=== PATIENT | male | born 1990 | race Two or more races ===

== ENCOUNTER 2019-09-27 04:45 | Day surgery (SDC) | payer OTHER ==
[~2019-09-27] VITALS: Ht 170.2 cm; Wt 80.4 kg
--- NOTE | 2019-09-27 05:05 | NUR ---
pt up to rr with steady gait
[2019-09-27] MEDS ORDERED: SODIUM CHLORIDE FLUSH 10ML SYR IVF ONE (05:30)
--- NOTE | 2019-09-27 05:37 | NUR ---
iv site started, labs drawwn, monitors in place, siderails up x2, call light within reach
[2019-09-27 05:41] LABS: MICROSCOPIC AUTO
[2019-09-27 05:59] LABS: BASOPHILS % (AUTO) 0 % (0-1); EOSINOPHILS # (AUTO) 0.04 x10^3/uL (0-0.4); EOSINOPHILS % (AUTO) 0 % (1-7); LYMPHOCYTES # (AUTO) 1.08 x10^3/uL (1-3.4); LYMPHOCYTES % (AUTO) 6 % (22-44); MD NO; MEAN CORPUSCULAR HEMOGLOBIN 30.5 pg (27.5-34.5); MEAN CORPUSCULAR HGB CONC 33.6 g/dL (33.2-36.2); MEAN CORPUSCULAR VOLUME 90.6 fL (81-97); MEAN PLATELET VOLUME 6.9 fL (7.4-10.4); MONOCYTES # (AUTO) 0.62 x10^3/uL (0.2-0.8); MONOCYTES % (AUTO) 4 % (2-9); NEUTROPHILS # (AUTO) 15.55 x10^3/uL (1.8-6.8); NEUTROPHILS % (AUTO) 90 % (42-75); PLATELET COUNT 327 x10^3/uL (130-400); RED BLOOD COUNT 4.94 x10^6/uL (4.38-5.82)
[2019-09-27 06:07] LABS: ANION GAP 6 mmol/L (5-15); CALCIUM 9.6 mg/dL (8.5-10.1); CHLORIDE 106 mmol/L (98-107)
[2019-09-27 06:11] LABS: ALANINE AMINOTRANSFERASE 32 U/L (12-78); ALKALINE PHOSPHATASE 109 U/L (45-117); BILIRUBIN,TOTAL 0.4 mg/dL (0.2-1.0); CREATININE 1.06 mg/dL (0.7-1.3); TOTAL PROTEIN 8.5 g/dL (6.4-8.2)
--- NOTE | 2019-09-27 06:37 | NUR ---
PT TO CT
--- NOTE | 2019-09-27 07:00 | NUR ---
received report from mercedes storey.
[2019-09-27] MEDS ORDERED: OMNIPAQUE 350 MG/ML, 100ML BOTTLE ONE (07:01)
[2019-09-27] MEDS ORDERED: ONDANSETRON 2MG/ML, 2ML ONE ×2 (07:17→11:18)
[2019-09-27] MEDS ORDERED: CEFOTETAN PMX 1GM/50ML 50 ML ONE (07:18)
[2019-09-27] MEDS ORDERED: MORPHINE SULFATE 4 MG/ML, 1ML ONE (07:18)
--- NOTE | 2019-09-27 07:18 | NUR ---
dr yancey spoke with dr torres
--- NOTE | 2019-09-27 07:20 | NUR ---
confirmed with erp no blood cultures to be drawn before iv abx.
[2019-09-27] MEDS: MORPHINE SULFATE 4 MG/ML, 1ML IVPush PRN ×2 (07:23→08:58)
[2019-09-27] MEDS ORDERED: ONDANSETRON 2MG/ML, 2ML IVPush ONE (07:30)
[2019-09-27] MEDS ORDERED: SODIUM CHLORIDE 0.9% 1,000ML IVBOLUS ONE (07:30)
[2019-09-27] MEDS ORDERED: CEFOTETAN PMX 1GM/50ML 50 ML IV ONE (07:30)
--- NOTE | 2019-09-27 07:36 | NUR ---
pt medicated to sep. resting in bed, family at bedside.
--- NOTE | 2019-09-27 08:30 | NUR ---
report given to mercedes gale.
[2019-09-27 09:33] VITALS: BP 131/44
[2019-09-27] MEDS ORDERED: BUPIVACAINE/PF 0.25% ONE (10:11)
[2019-09-27] MEDS ORDERED: EPINEPHRINE 1 MG/ML, 1ML ONE (10:11)
[2019-09-27] MEDS ORDERED: FENTANYL PF 100 MCG/2ML ONE (10:14)
[2019-09-27] MEDS ORDERED: KETOROLAC 30 MG/1 ML ONE (10:58)
[2019-09-27] MEDS ORDERED: BUPIVACAINE/PF-EPI 0.25% 1:200K INFIL ONE (11:07)
[2019-09-27] MEDS ORDERED: CEFOTETAN PMX 2GM/50ML 50 ML ONE (11:07)
[2019-09-27] MEDS ORDERED: DEXAMETHASONE 4 MG/ML, 1ML ONE (11:18)
[2019-09-27] MEDS ORDERED: NEOSTIGMINE 1 MG/ML, 10ML ONE (11:18)
[2019-09-27] MEDS ORDERED: ROCURONIUM 10MG/ML,5ML ONE (11:18)
[2019-09-27] MEDS ORDERED: PROPOFOL 10 MG/ML, 20ML ONE (11:18)
[2019-09-27] MEDS ORDERED: GLYCOPYRROLATE 0.2MG/1ML, 5ML ONE (11:18)
[2019-09-27] MEDS ORDERED: SUCCINYLCHOLINE 20 MG/ML, 10ML ONE (11:18)
[2019-09-27] MEDS ORDERED: ACETAMINOPHEN 325 MG TABLET PO PRN (12:00)
[2019-09-27] MEDS ORDERED: METOPROLOL 1 MG/ML, 5ML IV PRN (12:00)
[2019-09-27] MEDS ORDERED: OXYcodone 5 MG/5 ML ORAL.SOL UDC PO PRN (12:00)
[2019-09-27] MEDS ORDERED: ALBUTEROL/IPRATROPIUM 2.5MG/0.5MG, 3 ML NPPB PRN (12:00)
[2019-09-27] MEDS ORDERED: HYDROmorphone 2 MG/ML, 1ML IVPush PRN (12:00)
[2019-09-27] MEDS ORDERED: MEPERIDINE/PF 25MG/ML,1ML IVPush PRN (12:00)
[2019-09-27] MEDS ORDERED: MIDAZOLAM 1 MG/ML, 2ML IV PRN (12:00)
[2019-09-27] MEDS ORDERED: hydrALAzine 20 MG/ML, 1ML IV PRN (12:00)
[2019-09-27] MEDS ORDERED: FENTANYL PF 100 MCG/2ML IV PRN (12:00)
[2019-09-27] MEDS ORDERED: PROMETHAZINE 25 MG/ML, 1ML IV PRN (12:00)
[2019-09-27 13:23] VITALS: BP 106/69
[2019-09-27] MEDS ORDERED: KETOROLAC 30 MG/1 ML IV PRN (13:30)
[2019-09-27] MEDS ORDERED: MORPHINE SULFATE 4 MG/ML, 1ML IVPush PRN (13:30)
[2019-09-27 14:48] VITALS: BP 107/68
== END 2019-09-27 15:46 | disposition home or self-care (01) ==
LOC: ED 06:28 → UNDOADMOB 07:16 → EDIP 07:16 → 4NE 08:36 → EDIP 08:36 → EDSTATUS 10:17 → UNDODISOB 15:46 → ED 15:46
PROVIDERS: ATTEND Emergency Medicine
DX: K35.30 Acute appendicitis with localized peritonitis, without perforation or gangrene (principal); F17.200 Nicotine dependence, unspecified, uncomplicated; Z79.891 Long term (current) use of opiate analgesic; Z79.899 Other long term (current) drug therapy
CPT/HCPCS: 36415; 44970; 74177; 80053; 81001; 83690; 85025; 87086; 88304; 96365; 96375; 96376; 99284; J0171; J0330; J1100; J1885; J2270; J2405; J2704; J2710; J3010; J3490; J7030; Q9967; G0378